=== PATIENT | male | born 1990 | race African-American/Black ===

== ENCOUNTER 2020-06-14 01:40 | Emergency (ER) | payer SELFPAY ==
[~2020-06-14] VITALS: Ht 182.9 cm; Wt 65.8 kg
[2020-06-14 01:40] VITALS: BP 138/85
--- NOTE | 2020-06-14 01:40 | NUR ---
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 Patient states he was smooking hookah and noticed the cough shortly after. He also notes one episode of vomiting, no blood in vomit. Patient states he has chest pain due to the coughing. He is aaox4, breathing is normal and unlabored.
[2020-06-14] MEDS ORDERED: Albuterol/Ipratropium 3ml neb HHN ONE (01:45)
[2020-06-14] MEDS ORDERED: guaiFENesin w/Codeine 5ml Liq ud ORAL PRN (01:45)
--- NOTE | 2020-06-14 01:47 | Emergency Room Report ---
History of Present Illness General Chief Complaint: Upper Respiratory Illness Source: Patient Present Illness HPI 29-year-old -Iranian male brought in by ambulance with complaint of cough after smoking hookah at home prior to arrival. Patient complains of one episode of posttussive emesis that was nonbloody, otherwise denies any wheezing, shortness of breath, phlegm, chest pain, nausea, vomiting, diarrhea, rash, fever, abdominal pain, back pain, sick contacts, recent travel, or illness The patient's symptoms were gradual onset, severity was mild, duration since 2hr. Quality: dry cough Past medical history: Denies Past surgical history: Childhood surgery "does not remember" Smoking: ++ hookah Alcohol use: Denies Drug use: Denies Review of systems: CONST: No fevers or chills, No night sweats PULMONARY: ++Dry cough, No shortness of breath CARDIAC: No chest pain, No palpitations GI: ++ vomiting (post-tussive), No diarrhea , No melena_or_BRBPR : No dysuria, No hematuria, No discharge NEURO: No new_focal_weakness_or_numbness, No confusion, No vision changes 14 point Review of Systems is otherwise negative except per HPI Physical Exam: GENERAL: Awake_alert_ nontoxic, no acute distress Spo2 98% on RA -normal EYES: Extraocular muscles are intact. Conjunctivae clear. Lids without swelling ENT: External nose and ear normal_in_appearance. Oropharynx clear. Head_atraumatic, Moist_oral_mucosa No stridor, drooling, hoarse voice. No oropharyngeal blood. NECK: No JVD. No meningismus. No thyromegaly. Supple. Trachea midline. Speaks in full and complete sentences. No stridor or drooling. RESP: Normal respiratory effort. Symmetric rise. No stridor. Cl ear_to_auscultation_No_rales_No_wheezes No subcostal retractions. CARDIAC: Regular rate and regular rhytm. No_significant pedal edema. ABDOMEN: Soft. Nondistended. Nontender_No_rebound_or_guarding. No CVA tenderness to palpation. MSK: Normal muscle tone, without rigidity. Extremities without asymmetric deformity or swelling. SKIN: Warm and dry. No visible cyanosis or pallor NEUROLOGIC: Alert, oriented x3. Motor_and_sensation_grossly_intact. No truncal ataxia. Gait_normal Psych: Normal mood and affect, normal judgment and insight - COORDINATION OF CARE Case was discussed with: Patient Any imaging that were ordered were interpreted as part of the medical decision making: Medical Decision Making/Plan: Differential diagnosis includes: smoke inhalation (hookah), bronchitis, asthma exacerbation, pneumothorax, among others. The patients presentation seems most consistent with bronchitis. CXR shows no PTX, effusion, or pneumonia. No evidence of mediastinitis The patient was given albuterol, atrovent, steroids, and had serial reassessments. Symptoms resolved with guiafenesin + codeine. The patient is now stable to be discharged home safely for further outpatient management and reevaluation by their primary medical doctor. Counseled him to stop smoking hookah. The patient will be discharged with a prescription for steroids, as well as a refill of their inhaler if needed. 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: No Physical Exam Vital Signs Date Time Temp Pulse Resp B/P (MAP) Pulse Ox O2 Delivery O2 Flow Rate FiO2 06/14/20 01:35 97.3 87 16 138/85 (102) 98 Room Air Sp02 EP Interpretation: reviewed, normal Medical Decision Making Diagnostic Impression: Primary Impression: Cough Additional Impression: Hookah pipe smoker Reevaluation Time: 02:11 Last Vital Signs Date Time Temp Pulse Resp B/P (MAP) Pulse Ox O2 Delivery O2 Flow Rate FiO2 06/14/20 01:35 97.3 87 16 138/85 (102) 98 Room Air Status: improved Disposition: HOME, SELF-CARE Admit Decision Time: 02:09 Condition: Stable Scripts Guaifenesin/D-Methorphan Hb/Pe (ROBITUSSIN COUGH-COLD CF LIQ*) 118 Ml Liquid 5 ML ORAL Q6H PRN for FOR COUGH, #118 ML Prov: Zulma Lake D.OSandra 06/14/20 Albuterol Sulfate* (ALBUTEROL SULFATE HHN*) 2.5 Mg/3 Ml Vial.neb 2.5 MG HHN Q4H PRN for Shortness of Breath, #25 VIAL Prov: Zulma Lake D.O. 06/14/20 Patient Instructions: Cough, Adult, [id number] Additional Instructions: Instructions for patient/establishment guide: Follow up with your physician in 1-2 days. Follow-up with your doctor sooner if your condition requires a more timely clinical reevaluation. Return to the emergency department immediately if you feel that your condition is worsening or if you have any new or concerning symptoms. Review your discharge instructions and take any prescriptions given as ins tructed. [facility] FACILITIES FOR LOW COST HEALTH CARE [facility]: [facility] [address] [place] [address] [place] [address] [facility] [address] [facility] [address] [facility] [place] [address] [place] [address] [facility] [address] [place] [address] [facility] [address] [facility] [place] [address] [address] [place] [address] [place] [address] [facility] [address] [facility] [address] [place] [address] [place] [address] [facility] [address] [place] [address] [facility] PROVIDES FREE OR LOW-COST HEALTH SERVICES TO PEOPLE WHO CAN SHOW PROOF THAT THEY LIVE IN [facility]. TO FIND MORE CLINICS PARTNERED WITH THE [facility] TO PROVIDE SERVICE, PLEASE CALL . [facility] facet Zulma Lake D.O. Jun 14, 2020 01:47
[2020-06-14] MEDS ORDERED: ALBUTEROL2.5 MG/3 M HHN (02:15)
[2020-06-14] MEDS ORDERED: ROBITUSSIN COU118 M1 ORAL (02:15)
[2020-06-14 02:54] VITALS: BP 136/96
--- NOTE | 2020-06-14 02:55 | NUR ---
ED Nurse Note: Patient is no longer coughing s/p breathing treatment. He states he feels better.
[2020-06-14 03:12] VITALS: BP 125/85
--- NOTE | 2020-06-14 03:12 | NUR ---
ER DISCHARGE NOTE: Patient is cleared to be discharged per ERMD, pt is aox4, on room air, with stable vital signs. pt was given dc and prescription instructions, pt was able to verbalize understanding, pt id band removed. pt is able to ambulate with steady gait. pt took all belongings.
== END 2020-06-14 03:12 | disposition home or self-care (01) ==
LOC: EDBD 01:40 → EMR 01:45
DX: R05 Cough (principal); Z72.0 Tobacco use
CPT/HCPCS: 71045; 94640; 99284; J8540; U0002; J7620